=== PATIENT | female | born 1955 | race Caucasian/White ===

== ENCOUNTER 2020-06-25 20:02 | Emergency (ER) | payer MEDICARE ==
[2020-06-25 21:10] LABS: AMPHETAMINES NEGATIVE (NEGATIVE); BARBITURATES NEGATIVE (NEGATIVE); ECSTASY (MDMA) NEGATIVE (NEGATIVE); MARIJUANA (THC) NEGATIVE (NEGATIVE); METHADONE NEGATIVE (NEGATIVE); OPIATES NEGATIVE (NEGATIVE); OXYCODONE NEGATIVE (NEGATIVE)
[2020-06-25 21:11] LABS: BILIRUBIN NEGATIVE (NEGATIVE); BLOOD NEGATIVE Ery/uL (NEGATIVE); CLARITY CLEAR (CLEAR); COLOR YELLOW (YELLOW); GLUCOSE (U) NORMAL (NORMAL); LEUKOCYTES NEGATIVE Leu/uL (NEGATIVE); NITRITE NEGATIVE (NEGATIVE); PROTEIN NEGATIVE (NEGATIVE); SPECIFIC GRAVITY 1.015 (1.001-1.030); UROBILINOGEN 0.2 mg/dL (0.2-1.0); pH 6.5 (5.0-9.0)
[2020-06-25 21:33] LABS: BASOPHIL 0.8 % (0-2); EOSINOPHIL 4.8 % (0-7); HGB 13.7 g/dl (12.5-16.0); LYMPHOCYTE 26.7 % (15-48); MCH 29.3 pg (25.0-31.0); MCHC 34.3 g/dL (32.0-36.0); MCV 85.7 fL (78.0-100.0); MONOCYTE 9.3 % (0-12); MPV 9.8 fL (6.0-9.5); NEUTROPHIL 58.2 % (41-80); NRBC 0; PLT 269 K/uL (150-400); RBC 4.67 M/uL (4.20-5.40); RDW 12.8 % (11.5-14.0); WBC 6.3 K/uL (4.0-10.5)
[2020-06-25 21:49] LABS: ALBUMIN 3.7 g/dL (3.4-5.0); BILIRUBIN - TOTAL 0.2 mg/dL (0.2-1.0); BUN/CREAT RATIO (CALC) 16.3 RATIO; CREATININE 0.98 mg/dL (0.51-0.95); GLOBULIN (CALCULATION) 2.8 g/dL; POTASSIUM 3.7 mmol/L (3.5-5.1); TOTAL PROTEIN 6.5 g/dL (6.4-8.2)
== END 2020-06-25 23:17 | disposition home or self-care (01) ==
LOC: FER 20:02
PROVIDERS: Student in an Organized Health Care Education/Training Program
DX: R41.0 Disorientation, unspecified (principal); R45.6 Violent behavior
CPT/HCPCS: 36415; 70450; 71045; 80053; 80305; 81003; 84145; 84484; 85025; 93005

== ENCOUNTER 2021-08-13 20:03 | Emergency (ER) | payer MEDICARE ==
[~2021-08-13 20:03] MED LIST: ATORVASTATIN CA10 MG PO; VITAMIN B-121000 MC1 PO; VITAMIN D310 MC3 PO; ZOLOFT50 MG PO; ZYPREXA 5MG TABL5 MG PO
[2021-08-13 21:46] LABS: BASOPHIL 0.5 % (0-2); EOSINOPHIL 2.7 % (0-7); HCT 40.1 % (37.0-47.0); LYMPHOCYTE 15.4 % (15-48); MCH 27.7 pg (25.0-31.0); MCHC 32.4 g/dL (32.0-36.0); MCV 85.5 fL (78.0-100.0); MPV 9.3 fL (6.0-9.5); NEUTROPHIL 74.1 % (41-80); NRBC 0; PLT 210 K/uL (150-400); RBC 4.69 M/uL (4.20-5.40); RDW 12.9 % (11.5-14.0); WBC 7.8 K/uL (4.0-10.5)
[2021-08-13 22:08] LABS: ALBUMIN 3.5 g/dL (3.4-5.0); BILIRUBIN - TOTAL 0.3 mg/dL (0.2-1.0); BUN/CREAT RATIO (CALC) 17.4 RATIO; CREATININE 1.21 mg/dL (0.51-0.95); GLOBULIN (CALCULATION) 2.6 g/dL; POTASSIUM 3.4 mmol/L (3.5-5.1); TOTAL PROTEIN 6.1 g/dL (6.4-8.2)
[2021-08-13 23:29] LABS: BILIRUBIN NEGATIVE (NEGATIVE); BLOOD NEGATIVE Ery/uL (NEGATIVE); CLARITY CLEAR (CLEAR); COLOR YELLOW (YELLOW); GLUCOSE (U) NORMAL (NORMAL); LEUKOCYTES TRACE Leu/uL (NEGATIVE); NITRITE NEGATIVE (NEGATIVE); PROTEIN NEGATIVE (NEGATIVE); SPECIFIC GRAVITY 1.015 (1.001-1.030); UROBILINOGEN 0.2 mg/dL (0.2-1.0); pH 6.5 (5.0-9.0)
[2021-08-13 23:39] LABS: BACTERIA TRACE; URINARY WBC RARE
[2021-08-13 23:40] LABS: TRANSITIONAL EPITHELIAL CELLS RARE; URINARY RBC RARE
== END 2021-08-14 00:44 | disposition home or self-care (01) ==
LOC: FER 20:03
PROVIDERS: Internal Medicine
DX: M25.552 Pain in left hip (principal); N18.30 Chronic kidney disease, stage 3 unspecified; F03.90 Unspecified dementia, unspecified severity, without behavioral disturbance, psychotic disturbance, mood disturbance, and anxiety; W01.0XXA Fall on same level from slipping, tripping and stumbling without subsequent striking against object, initial encounter; Y92.009 Unspecified place in unspecified non-institutional (private) residence as the place of occurrence of the external cause
CPT/HCPCS: 36415; 70450; 71250; 80053; 81001; 84145; 84484; 85025; 93005